=== PATIENT | female | born 1955 | race Caucasian/White ===

== ENCOUNTER 2021-07-26 16:27 | Emergency (ER) | payer OTHER ==
[~2021-07-26 16:27] MED LIST: KEFLEX CAP 500500 MG PO; VIBRAMYCIN100 MG PO
== END 2021-07-26 21:13 | disposition home or self-care (01) ==
LOC: ER1 16:27
DX: R04.0 Epistaxis (principal); Z88.8 Allergy status to other drugs, medicaments and biological substances
CPT/HCPCS: 30903; 99283

== ENCOUNTER 2021-07-29 12:41 | Emergency (ER) | payer OTHER ==
[2021-07-29] MEDS ORDERED: AMOXICILLIN875 MG PO (16:07)
== END 2021-07-29 16:18 | disposition home or self-care (01) ==
LOC: ER1 12:41
DX: T17.1XXA Foreign body in nostril, initial encounter (principal); E11.22 Type 2 diabetes mellitus with diabetic chronic kidney disease; J44.9 Chronic obstructive pulmonary disease, unspecified; N18.9 Chronic kidney disease, unspecified; Z91.040 Latex allergy status; Z88.8 Allergy status to other drugs, medicaments and biological substances; W19.XXXA Unspecified fall, initial encounter
CPT/HCPCS: 72220; 99283